=== PATIENT | male | born 1950 | race Caucasian/White ===

== ENCOUNTER 2022-02-08 10:52 | Emergency (ER) | payer MEDICARE ==
[2022-02-08 11:40] LABS: #Eosinphils 0.1 10x3/uL (0.0-0.5); #Monocytes 0.5 10x3/uL (0.0-1.1); #Neutrophils 5.1 10x3/uL (1.5-8.4); %Basophils 0.3 % (0.0-2.0); %Eosinophils 1.5 % (0.0-6.0); %Neutrophils 73.9 % (40.0-75.0); Hemoglobin 13.6 g/dL (13.5-17.5); Mean Corpuscular HGB CONC 34.1 g/dL (32.0-36.0); Mean Corpuscular Hemoglobin 30.9 pg (27.0-33.0); Mean Corpuscular Volume 90.7 fl (81.2-95.1); Mean Platelet Volume 12.1 fl (7.4-10.4); Platelet Count 113 10x3/uL (150-450); RBC Distribution Width 12.1 % (11.5-14.5); White Blood Cell (WBC) Count 6.9 10x3/uL (3.5-10.5)
[2022-02-08 11:48] LABS: INR-International Normal Ratio 1.1; PTT 28.6 sec (22.0-33.0); Prothrombin Time 11.9 sec (9.5-12.1)
[2022-02-08 11:50] LABS: ALT (SGPT) 18 U/L (8-55); AST (SGOT) 12 U/L (5-34); Alkaline Phosphatase 68 U/L (40-110); Anion Gap 14 mmol/L (10-20); BUN (Urea Nitrogen) 23 mg/dL (8.4-25.7); Bilirubin, Total 1.4 mg/dL (0.2-1.2); Calc. Creatinine Clearance 0 mL/min (70-130); Calcium 9.7 mg/dL (7.8-10.44); Carbon Dioxide 26 mmol/L (23-31); Chloride 105 mmol/L (98-107); Globulin 2.3 g/dL (2.4-3.5); Glucose 98 mg/dL (80-115); Potassium 4.2 mmol/L (3.5-5.1); Protein, Total 6.3 g/dL (5.8-8.1); Sodium 141 mmol/L (136-145)
[2022-02-08] MEDS ORDERED: HYDROcodone/Acetaminophen 10/325 mg Tablet ONE (13:02)
== END 2022-02-08 14:35 | disposition home or self-care (01) ==
LOC: CSHERS 10:52
DX: M54.12 Radiculopathy, cervical region (principal); I10 Essential (primary) hypertension; Z87.891 Personal history of nicotine dependence
CPT/HCPCS: 80053; 85025; 85610; 85730

== ENCOUNTER 2022-02-11 14:40 | Outpatient (CLI) | payer MEDICARE | END 2022-02-11 14:41 | disposition home or self-care (01) | LOC: CSHRAD 14:40 | PROVIDERS: ATTEND Chiropractor | DX: M54.12 Radiculopathy, cervical region (principal); M47.812 Spondylosis without myelopathy or radiculopathy, cervical region | CPT/HCPCS: 72050 ==

== ENCOUNTER 2022-03-18 18:16 | Emergency (ER) | payer MEDICARE ==
[~2022-03-18 18:16] MED LIST: Iopamidol 300 61% 100 ML VIAL FS ONE
[2022-03-18 19:03] LABS: Bilirubin Neg (Negative); Blood, Urine 50 (Negative); Clarity Clear (Clear); Glucose, Urine (Dipstick) Normal (Negative); Ketone, Urine Negative (Negative); Leukocyte Negative (Negative); Nitrite Negative (Negative); Protein, Urine (Dipstick) Negative (Neg-Trace); Specific Gravity, Urine 1.015 (1.002-1.036); Urobilinogen Normal mg/dL (Less than 2)
[2022-03-18 19:10] LABS: Bacteria/HPF Rare-Few HPF (None Seen); RBC/HPF 0-3 HPF (0-3); Squamous Epithelial None Seen HPF (0-3); WBC/HPF None Seen HPF (0-3)
[2022-03-18] MEDS ORDERED: Ketorolac Tromethamine 30 MG/ML VIAL ONE (19:31)
[2022-03-18 19:58] LABS: ALT (SGPT) 22 U/L (8-55); AST (SGOT) 14 U/L (5-34); Albumin 4.2 g/dL (3.4-4.8); Alkaline Phosphatase 71 U/L (40-110); Anion Gap 14 mmol/L (10-20); BUN (Urea Nitrogen) 26 mg/dL (8.4-25.7); Bilirubin, Total 1.6 mg/dL (0.2-1.2); Calc. Creatinine Clearance 0 mL/min (70-130); Calcium 9.6 mg/dL (7.8-10.44); Carbon Dioxide 26 mmol/L (23-31); Chloride 105 mmol/L (98-107); Estimated GFR 45; Globulin 2.4 g/dL (2.4-3.5); Glucose 97 mg/dL (80-115); Potassium 4.3 mmol/L (3.5-5.1); Protein, Total 6.6 g/dL (5.8-8.1); Sodium 141 mmol/L (136-145)
[2022-03-18 20:07] LABS: #Eosinphils 0.1 10x3/uL (0.0-0.5); #Monocytes 0.5 10x3/uL (0.0-1.1); #Neutrophils 6.3 10x3/uL (1.5-8.4); %Basophils 0.3 % (0.0-2.0); %Eosinophils 0.8 % (0.0-6.0); %Lymphocytes 7.6 % (18.0-47.0); %Monocytes 6.4 % (0.0-10.0); %Neutrophils 84.6 % (40.0-75.0); Hemoglobin 14.1 g/dL (13.5-17.5); Mean Corpuscular Hemoglobin 31.2 pg (27.0-33.0); Mean Corpuscular Volume 91.8 fl (81.2-95.1); Mean Platelet Volume 12.1 fl (7.4-10.4); Platelet Count 105 10x3/uL (150-450); RBC Distribution Width 13.2 % (11.5-14.5); Red Blood Cell (RBC) Count 4.52 10x6/uL (4.32-5.72); White Blood Cell (WBC) Count 7.5 10x3/uL (3.5-10.5)
[2022-03-18] MEDS ORDERED: metroNIDAZOLE 500 MG TAB ONE (22:11)
[2022-03-18] MEDS ORDERED: HYDROcodone/Acetaminophen 5/325 mg Tablet ONE (22:12)
[2022-03-18] MEDS ORDERED: Ciprofloxacin 500 MG TAB ONE (22:16)
== END 2022-03-18 22:22 | disposition home or self-care (01) ==
LOC: CSHERS 18:16
DX: K57.32 Diverticulitis of large intestine without perforation or abscess without bleeding (principal); I10 Essential (primary) hypertension; Z87.891 Personal history of nicotine dependence
CPT/HCPCS: 36415; 74177; 80053; 81003; 81015; 85025; 87086; 96374; J1885; Q9967

== ENCOUNTER 2022-03-23 09:15 | Inpatient (IN) | payer MEDICARE ==
[2022-03-23] MEDS ORDERED: Morphine 4 MG/ML VIAL ONE (10:00)
[2022-03-23 10:10] LABS: #Eosinphils 0.2 10x3/uL (0.0-0.5); #Monocytes 0.8 10x3/uL (0.0-1.1); #Neutrophils 5.9 10x3/uL (1.5-8.4); %Basophils 0.5 % (0.0-2.0); %Eosinophils 2.9 % (0.0-6.0); %Lymphocytes 11.9 % (18.0-47.0); %Monocytes 9.5 % (0.0-10.0); %Neutrophils 74.8 % (40.0-75.0); Mean Corpuscular HGB CONC 34.4 g/dL (32.0-36.0); Mean Corpuscular Hemoglobin 31.3 pg (27.0-33.0); Mean Platelet Volume 11.5 fl (7.4-10.4); Platelet Count 170 10x3/uL (150-450); RBC Distribution Width 12.9 % (11.5-14.5); Red Blood Cell (RBC) Count 4.79 10x6/uL (4.32-5.72); White Blood Cell (WBC) Count 7.9 10x3/uL (3.5-10.5)
[2022-03-23 10:23] LABS: ALT (SGPT) 22 U/L (8-55); AST (SGOT) 19 U/L (5-34); Albumin 3.8 g/dL (3.4-4.8); Alkaline Phosphatase 61 U/L (40-110); Anion Gap 14 mmol/L (10-20); BUN (Urea Nitrogen) 17 mg/dL (8.4-25.7); Calc. Creatinine Clearance 0 mL/min (70-130); Calcium 9.8 mg/dL (7.8-10.44); Carbon Dioxide 27 mmol/L (23-31); Chloride 106 mmol/L (98-107); Estimated GFR 47; Globulin 2.8 g/dL (2.4-3.5); Glucose 104 mg/dL (80-115); Potassium 3.9 mmol/L (3.5-5.1); Protein, Total 6.6 g/dL (5.8-8.1); Sodium 143 mmol/L (136-145)
[2022-03-23] MEDS ORDERED: Piperacillin/Tazobactam 4.5 GM VIAL ONE (11:07)
[2022-03-23 11:36] LABS: SARS-CoV-2 NAA Rapid Test Not Detected (NotDetected)
[2022-03-23] MEDS ORDERED: Iopamidol 300 61% 100 ML VIAL FS ONE (12:11)
[2022-03-23 15:11] VITALS: BMI 31.6
[2022-03-23] MEDS ORDERED: Dextrose 50% Abboject 50 ML SYRINGE SLOW IVP PRN (16:31)
[2022-03-23] MEDS ORDERED: Dextrose 5% in Water 1,000 ML IV PRN (16:31)
[2022-03-23] MEDS ORDERED: Morphine 2 MG/ML VIAL SLOW IVP PRN (16:31)
[2022-03-23] MEDS ORDERED: Mag-Al 1200 mg/1200 mg/30 ML UDCUP PO PRN (16:31)
[2022-03-23] MEDS ORDERED: Promethazine HCl 25 MG/ML VIAL IM PRN (16:31)
[2022-03-23] MEDS ORDERED: Ondansetron PF 4 MG/2 ML Vial IVP PRN (16:31)
[2022-03-23] MEDS ORDERED: Calcium Carbonate 500 MG ChewTAB PO PRN (16:31)
[2022-03-23] MEDS ORDERED: hydrALAZINE 20 MG/ML VIAL SLOW IVP PRN (16:31)
[2022-03-23] MEDS ORDERED: Piperacillin/Tazobactam 3.375 GM in Sodium Chloride 0.9% 100 ML IVPB SCH (18:00)
[2022-03-23] MEDS: Piperacillin/Tazobactam 3.375 GM in Sodium Chloride 0.9% 100 ML IVPB SCH (18:48)
[2022-03-23] MEDS: D5 1/2 NS w/20 mEq KCL 1,000 ML IV SCH (18:48)
[2022-03-23] MEDS ORDERED: Famotidine/PF 20 mg/2ml Vial SLOW IVP SCH (21:00)
[2022-03-23] MEDS: Famotidine 20 MG TAB PO SCH (21:24)
[2022-03-23] MEDS: Metoprolol Tartrate 50 MG TAB PO SCH (21:25)
[2022-03-23] MEDS: HYDROcodone/Acetaminophen 10/325 mg Tablet PO PRN (21:31)
[2022-03-24] MEDS: Piperacillin/Tazobactam 3.375 GM in Sodium Chloride 0.9% 100 ML IVPB SCH ×2 (02:07→08:37)
[2022-03-24 06:21] LABS: ALT (SGPT) 20 U/L (8-55); AST (SGOT) 17 U/L (5-34); Albumin 3.1 g/dL (3.4-4.8); Alkaline Phosphatase 57 U/L (40-110); Anion Gap 11 mmol/L (10-20); BUN (Urea Nitrogen) 15 mg/dL (8.4-25.7); Bilirubin, Total 0.7 mg/dL (0.2-1.2); Calc. Creatinine Clearance 74 mL/min (70-130); Calcium 8.7 mg/dL (7.8-10.44); Carbon Dioxide 28 mmol/L (23-31); Chloride 106 mmol/L (98-107); Estimated GFR 49; Globulin 2.2 g/dL (2.4-3.5); Glucose 105 mg/dL (80-115); Potassium 4.1 mmol/L (3.5-5.1); Protein, Total 5.3 g/dL (5.8-8.1); Sodium 141 mmol/L (136-145)
[2022-03-24] MEDS ORDERED: D5 1/2 NS w/20 mEq KCL 1,000 ML ONE (08:18)
[2022-03-24] MEDS: HYDROcodone/Acetaminophen 10/325 mg Tablet PO PRN (08:36)
[2022-03-24] MEDS: Metoprolol Tartrate 50 MG TAB PO SCH (08:37)
[2022-03-24] MEDS ORDERED: Lidocaine 1% PF 5 ML VIAL ONE (09:41)
[2022-03-24] MEDS ORDERED: Sodium Bicarbonate 2.5 MEQ/5 ML VIAL ONE (09:41)
[2022-03-24 10:35] LABS: #Eosinphils 0.2 10x3/uL (0.0-0.5); #Monocytes 0.6 10x3/uL (0.0-1.1); #Neutrophils 5.1 10x3/uL (1.5-8.4); %Basophils 0.6 % (0.0-2.0); %Monocytes 9.3 % (0.0-10.0); %Neutrophils 73.7 % (40.0-75.0); Hemoglobin 12.8 g/dL (13.5-17.5); Mean Corpuscular HGB CONC 34.4 g/dL (32.0-36.0); Mean Corpuscular Hemoglobin 31.1 pg (27.0-33.0); Mean Corpuscular Volume 90.5 fl (81.2-95.1); Mean Platelet Volume 11.6 fl (7.4-10.4); Platelet Count 154 10x3/uL (150-450); RBC Distribution Width 13.2 % (11.5-14.5); Red Blood Cell (RBC) Count 4.11 10x6/uL (4.32-5.72); White Blood Cell (WBC) Count 6.9 10x3/uL (3.5-10.5)
[2022-03-24] MEDS: D5 1/2 NS w/20 mEq KCL 1,000 ML IV SCH (11:17)
[2022-03-24] MEDS: Famotidine 20 MG TAB PO SCH (11:17)
[2022-03-24 16:29] VITALS: BP 154/73; TEMP 97.6
== END 2022-03-24 16:46 | disposition home or self-care (01) | DRG 391 ==
LOC: CSHERS 09:15 → CSHTELE 14:54
PROVIDERS: ADMIT Surgery; ATTEND Surgery
PROC: 0W9H30Z Drainage of Retroperitoneum with Drainage Device, Percutaneous Approach (ICD-10-PCS; principal; 2022-03-24)
DX: K57.20 Diverticulitis of large intestine with perforation and abscess without bleeding (principal); K65.1 Peritoneal abscess; I10 Essential (primary) hypertension; K42.9 Umbilical hernia without obstruction or gangrene; Z20.822 Contact with and (suspected) exposure to COVID-19; Z87.891 Personal history of nicotine dependence
CPT/HCPCS: 49060; 74177; 80053; 83605; 85025; 87070; 96361; 96365; 96375; C1729; J0360; J2270; J2543; J3480; J3490; Q9967; U0002